=== PATIENT | female | born 1965 | race Caucasian/White ===

== ENCOUNTER 2025-02-24 15:39 | Inpatient (IN) | payer MEDICARE, OTHER ==
[~2025-02-24] VITALS: Ht 165.1 cm; Wt 101.6 kg
[2025-02-24] MEDS ORDERED: AMLO-212 PO (16:11)
[2025-02-24] MEDS ORDERED: ASPI81TA31 PO (16:11)
[2025-02-24] MEDS ORDERED: DIVA-78 PO (16:11)
[2025-02-24] MEDS ORDERED: DIVA-76 PO (16:12)
[2025-02-24] MEDS ORDERED: LEVO125C4 PO (16:12)
[2025-02-24] MEDS ORDERED: OMEG500C3 PO (16:12)
[2025-02-24] MEDS ORDERED: PRAZ1CAP5 PO (16:14)
[2025-02-24] MEDS ORDERED: RISP2TAB85 PO (16:14)
[2025-02-24] MEDS ORDERED: TRAZ-182 PO (16:14)
[2025-02-24] MEDS ORDERED: OXYC-117 PO (16:14)
[2025-02-24] MEDS ORDERED: LORAZEPAM 1 MG TABLET PO PRN (16:45)
[2025-02-24] MEDS ORDERED: MAG HYDROX/AL HYDROX/SIMETH 30 ML LIQUID UDC PO PRN (16:45)
[2025-02-24] MEDS ORDERED: ACETAMINOPHEN 325 MG TABLET PO PRN (16:45)
[2025-02-24] MEDS ORDERED: MAGNESIUM HYDROXIDE 30 ML LIQUID UDC PO PRN (16:45)
[2025-02-24 17:23] VITALS: BP 90/70; TEMP 98.5; O2SAT 98
[2025-02-24 19:57] VITALS: O2SAT 93
[2025-02-24] MEDS: TEMAZEPAM 7.5 MG CAPSULE PO ONE (20:15)
[2025-02-24] MEDS: LORAZEPAM 1 MG TABLET PO ONE (20:21)
[2025-02-24] MEDS ORDERED: OMEGA PO SCH (21:00)
[2025-02-25] MEDS ORDERED: LEVOTHYROXINE SODIUM 125 MCG TABLET PO SCH ×3 (07:00→09:00)
[2025-02-25 07:21] LABS: PLATELET COUNT (AUTO) 231 K/uL (179-408); RED BLOOD CELL COUNT(AUTO) 4.22 MIL/uL (3.63-4.92); RED CELL DISTRIBUTION WIDTH 14.5 % (12.3-17.7); WHITE BLOOD COUNT (AUTO) 6.8 K/uL (3.8-11.8)
[2025-02-25 07:35] LABS: ASPARTATE AMINOTRANSFERASE 13.0 U/L (15-37); CREATININE 0.9 mg/dL (0.6-1.3); SODIUM SERUM 138.0 mmol/L (136-145); TOTAL PROTEIN, SERUM 7.8 g/dL (6.4-8.2); UREA NITROGEN, BLOOD 16.0 mg/dL (7-18)
[2025-02-25 08:38] VITALS: BP 125/104; TEMP 98; O2SAT 100
[2025-02-25] MEDS: ASPIRIN 81 MG TAB.CHEW PO SCH (09:11)
[2025-02-25] MEDS: NICOTINE 14 MG/24HR PATCH TD SCH (09:11)
[2025-02-25] MEDS: DIVALPROEX 500 MG TABLET.DR PO SCH (11:11)
[2025-02-25] MEDS: LEVOTHYROXINE SODIUM 175 MCG TABLET PO SCH (11:15)
[2025-02-25 15:49] VITALS: BP 132/98; TEMP 98.3; O2SAT 100
[2025-02-25 19:44] VITALS: BP 128/95; TEMP 97.4; O2SAT 97
[2025-02-25] MEDS: TRAZODONE 50 MG TABLET PO SCH (20:44)
[2025-02-25] MEDS: OMEGA-3 FATTY ACIDS/FISH OIL CAPSULE PO SCH (20:44)
[2025-02-25] MEDS: ATORVASTATIN 20 MG TABLET PO SCH (20:47)
[2025-02-25] MEDS: IBUPROFEN 400 MG TABLET PO PRN (21:24)
[2025-02-25] MEDS: ZOLPIDEM 5 MG TABLET PO PRN (22:12)
[2025-02-25] MEDS: NICOTINE 14 MG/24HR PATCH TD ONE (23:40)
[2025-02-26] MEDS: LORAZEPAM 1 MG TABLET PO PRN (00:39)
[2025-02-26 07:53] VITALS: BP 126/89; TEMP 98; O2SAT 98
[2025-02-26] MEDS ORDERED: CHLORHEXIDINE GLUCONATE 15 ML MOUTHWASH MM SCH (10:15)
== END 2025-02-26 09:30 | disposition left against medical advice (07) | DRG 885 ==
LOC: ER 15:39 → GPS 16:36
PROVIDERS: ADMIT Psychiatry & Neurology Psychiatry; ATTEND Nurse Practitioner Acute Care
DX: F31.30 Bipolar disorder, current episode depressed, mild or moderate severity, unspecified (principal); I11.0 Hypertensive heart disease with heart failure; R45.851 Suicidal ideations; Z53.29 Procedure and treatment not carried out because of patient's decision for other reasons; F15.10 Other stimulant abuse, uncomplicated; F14.10 Cocaine abuse, uncomplicated; K08.89 Other specified disorders of teeth and supporting structures; K04.8 Radicular cyst; E78.5 Hyperlipidemia, unspecified; T39.31 Poisoning by, adverse effect of and underdosing of propionic acid derivatives; E07.9 Disorder of thyroid, unspecified; I50.9 Heart failure, unspecified; K13.79 Other lesions of oral mucosa; F25.9 Schizoaffective disorder, unspecified
CPT/HCPCS: 36415; 70486; 83735; 84100; 84443; 85025